=== PATIENT | male | born 1990 | race Caucasian/White ===

== ENCOUNTER 2018-08-01 18:41 | Emergency (ER) | payer MEDICAID ==
[~2018-08-01] VITALS: Ht 165.1 cm; Wt 69.9 kg
[2018-08-01 18:59] VITALS: Ht 165.1 cm; Wt 69.9 kg
[2018-08-01 22:46] VITALS: BP 124/70
== END 2018-08-01 22:46 | disposition home or self-care (01) ==
LOC: ED 18:41
DX: K64.9 Unspecified hemorrhoids (principal)
CPT/HCPCS: J1885